=== PATIENT | male | born 1985 | race Caucasian/White ===

== ENCOUNTER 2018-02-18 07:29 | Outpatient (CLI) | payer OTHER ==
[~2018-02-18 07:29] MED LIST: AMPICILLIN TRI250 MG PO
== END 2018-02-18 07:53 | disposition home or self-care (01) ==
LOC: LAB 07:29
DX: E11.9 Type 2 diabetes mellitus without complications (principal); E55.9 Vitamin D deficiency, unspecified; N39.0 Urinary tract infection, site not specified; E78.2 Mixed hyperlipidemia; E03.8 Other specified hypothyroidism

== ENCOUNTER 2019-02-18 10:04 | Emergency (ER) | payer OTHER ==
[~2019-02-18] VITALS: Ht 165.1 cm; Wt 69.9 kg
== END 2019-02-18 10:49 | disposition home or self-care (01) ==
LOC: ER 10:04
DX: S61.230A Puncture wound without foreign body of right index finger without damage to nail, initial encounter (principal); L53.8 Other specified erythematous conditions; W45.0XXA Nail entering through skin, initial encounter; Y93.89 Activity, other specified; Y92.018 Other place in single-family (private) house as the place of occurrence of the external cause; Y99.8 Other external cause status

== ENCOUNTER 2022-08-26 06:34 | Emergency (ER) | payer OTHER ==
[~2022-08-26] VITALS: Ht 165.1 cm; Wt 70.3 kg
== END 2022-08-26 10:11 | disposition home or self-care (01) ==
LOC: ER 06:34
DX: B34.9 Viral infection, unspecified (principal); Z88.2 Allergy status to sulfonamides; Z20.822 Contact with and (suspected) exposure to COVID-19

== ENCOUNTER → 2024-08-27 | Emergency (ER) | payer OTHER ==
[~2024-08-27] VITALS: Ht 165.1 cm; Wt 70.3 kg
== END | disposition left against medical advice (07) ==
LOC: ER 04:00
DX: Z53.21 Procedure and treatment not carried out due to patient leaving prior to being seen by health care provider (principal)